=== PATIENT | female | born 1990 | race African-American/Black ===

== ENCOUNTER 2019-03-22 09:13 | Emergency (ER) | payer OTHER ==
[2019-03-22 09:50] LABS: BILIRUBIN,URINE NEGATIVE (NEGATIVE); CLARITY,URINE CLEAR (CLEAR); GLUCOSE, URINE (UA) 100 mg/dL (NEGATIVE); KETONES,URINE (UA) NEGATIVE (NEGATIVE); LEUKOCYTE ESTERASE, URINE TRACE (NEGATIVE); NITRITE,URINE NEGATIVE (NEGATIVE); OCCULT BLOOD,URINE NEGATIVE (NEGATIVE); PROTEIN,URINE NEGATIVE (NEGATIVE); UROBILINOGEN,URINE 0.2 (NORMAL) E.U./dL (NORMAL)
[2019-03-22 09:54] LABS: BACTERIA,URINE None Seen /HPF (None Seen); RBC,URINE None Seen /HPF (0-5); SQUAMOUS EPITHELIAL CELL,UR NONE SEEN (<= Few)
--- NOTE | 2019-03-22 10:31 | ED Physician Documentation ---
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 She has come to the emergency department concerned about taking medication for yeast infection as she is uncertain if there is something else going on as well. Review of Systems Constitutional: denies: Fever Eyes: denies: Decreased vision Ears: denies: Ear pain Nose: denies: Rhinorrhea / runny nose, Congestion Throat: denies: Sore throat Cardiac: denies: Chest pain / pressure, Palpitations Respiratory: denies: Dyspnea, Cough GI: reports: Nausea. denies: Abdominal Pain : reports: Discharge, Now EGA (16wk). denies: Dysuria, Frequency Skin: denies: Rash Musculoskeletal: denies: Neck pain, Back pain, Extremity pain PD PAST MEDICAL HISTORY - Past Medical History GI: GERD - Past Surgical History Past Surgical History: No - Present Medications Home Medications: Ambulatory Orders Medication Instructions Recorded Confirmed No Known Home Medications 07/20/15 07/20/15 - Allergies Allergies/Adverse Reactions: Allergies Allergy/AdvReac Type Severity Reaction Status Date / Time No Known Drug Allergies Allergy Verified 03/22/19 09:22 - Social History Does the pt smoke?: No Smoking Status: Never smoker Does the pt drink ETOH?: No Does the pt have substance abuse?: No - Immunizations Immunizations are current?: Yes Immunizations: TDAP >10years/unknown - POLST Patient has POLST: No PD ED PE NORMAL - Vitals Vital signs reviewed: Yes (tachy ) - General General: Alert and oriented X 3, No acute distress, Well developed/nourished - HEENT HEENT: Atraumatic, PERRL, EOMI - Neck Neck: Supple, no meningeal sign, No bony TTP - Cardiac Cardiac: RRR, No murmur - Respiratory Respiratory: No respiratory distress, Clear bilaterally - Abdomen Abdomen: Soft, Non tender - Female Female : Ticket Marker present (marshallese), Other (thick white discharge is scant and there is mucopurlence. ) - Back Back: No CVA TTP, No spinal TTP - Derm Derm: Normal color, Warm and dry, No rash - Extremities Extremities: No deformity, No edema - Neuro Neuro: Alert and oriented X 3, paper cone maker 2-12 intact, No motor deficit, No sensory deficit, Normal speech Eye Opening: Spontaneous Motor: Obeys Commands Verbal: Oriented GCS Score: 15 - Psych Psych: Other (mood is withdrawn and the affect is flat ) Results - Vitals Vitals: Vital Signs - 24 hr 03/22/19 03/22/19 03/22/19 09:19 09:40 12:34 Temperature 36.5 C Heart Rate 101 H 85 Respiratory 14 17 19 Rate Blood Pressure 120/57 L 122/68 O2 Saturation 99 100 Oxygen O2 Source Room air - Labs Labs: Microbiology 03/22/19 11:30 Wet Prep - Final Cervix 03/22/19 11:30 KHURRAM Preparation - Final Fluid - Cervix Laboratory Tests 03/22/19 03/22/19 09:37 09:37 Urine Color Cancelled YELLOW Urine Clarity Cancelled CLEAR Urine pH Cancelled 6.0 Ur Specific [place] Cancelled <=1.005 Urine Protein Cancelled NEGATIVE Urine Glucose (UA) Cancelled 100 H Urine Ketones Cancelled NEGATIVE Urine Occult Blood Cancelled NEGATIVE Urine Nitrite Cancelled NEGATIVE Urine Bilirubin Cancelled NEGATIVE Urine Urobilinogen Cancelled 0.2 (NORMAL) Ur Leukocyte Esterase Cancelled TRACE H Urine RBC Cancelled None Seen Urine WBC Cancelled 4-5 Urine WBC [place]umps Cancelled Ur Epithelial Cells Cancelled Ur Squamous Epith Cells Cancelled NONE SEEN Urine Crystals Cancelled Amorphous Sediment Cancelled Urine Bacteria Cancelled None Seen Urine Casts Cancelled Urine Starch Cancelled Urine Mucus Cancelled Urine Trichomonas Cancelled Urine Yeast Cancelled Urine Sperm Cancelled Ur Oval Fat Bodies Cancelled Ur Microscopic Review INDICATED Urine Culture Comments Cancelled INDICATED Procedures - Bedside sono Bedside sono by EMP: This bedside ultrasound the fetus is imaged it images as a viable single 16-week 3-day old fetus by biparietal diameter. The heart rate is 144. PD MEDICAL DECISION MAKING - ED course Complexity details: reviewed results, re-evaluated patient, considered differential, d/w patient, d/w family ED course: 28-year-old female with a chief complaint of vaginal itching is concerned that she may not be using the right medication for this and before she started using that she wanted to make certain that this was appropriate. Her chief complaint is itching with a slight discharge. She does not have pelvic pain. She indicates that she has not had sex with her since she has become . She has been checked for chlamydia and her routine visit. On examination I did find some muco-purulence and I did not obtain culture for GC and chlamydia. After repeating history from the patient and her chief complaint of vaginal itching I asked the patient to follow-up with her HELP DESK COORDINATOR if she has persistence of symptoms or symptoms not responding to treatment. I do not feel a second pelvic exam would be helpful and empiric treatment is not indicated for STD. I do feel that even with the negative swab for KHURRAM that her symptoms warrant empiric treatment for yeast and I have recommended monistat for her. Departure - Departure Disposition: 01 Home, Self Care Clinical Impression: Yeast vaginitis Condition: Stable Instructions: ED Vaginal Infec Fungal [place] Follow-Up: ROBY FREEMAN MD [Primary Care Provider] - Comments: Obtain the medication "Monistat" which is a vaginal yeast medication and use it for one week. Expect to have improvement in your itching in the next 2-3 days. Discharge Date/Time: 03/22/19 12:35
[2019-03-22 12:35] VITALS: BP 122/68
== END 2019-03-22 12:35 | disposition home or self-care (01) ==
LOC: ED 09:13
DX: O23.592 Infection of other part of genital tract in pregnancy, second trimester (principal); B37.3 Candidiasis of vulva and vagina; Z3A.16 16 weeks gestation of pregnancy
CPT/HCPCS: 81001; 81003; 87086; 87210; 87220; 99283

== ENCOUNTER 2022-06-26 04:14 | Emergency (ER) | payer OTHER ==
--- NOTE | 2022-06-26 05:29 | ED Physician Documentation ---
PD HPI Fall - Stated complaint Stated Complaint: LLQ ABD PX - Chief complaint Chief Complaint: Abd Pain PD PAST MEDICAL HISTORY - Past Medical History Cardiovascular: None Respiratory: None Endocrine/Autoimmune: None GI: GERD - Past Surgical History Past Surgical History: No - Present Medications Home Medications: Ambulatory Orders Medication Instructions Recorded Confirmed Acetaminophen [Acetaminophen Extra 500 mg PO QID PRN #50 tablet 06/06/22 Strength] Lidocaine Viscous 2% [Xylocaine 5 ml PO Q4H PRN #100 ml 06/06/22 Viscous 2%] Pantoprazole [Protonix] 40 mg PO DAILY 30 Days #30 tablet 06/06/22 Sucralfate [Carafate] 1 gm PO BID #30 tablet 06/06/22 - Allergies Allergies/Adverse Reactions: Allergies Allergy/AdvReac Type Severity Reaction Status Date / Time No Known Drug Allergies Allergy Verified 06/26/22 04:17 - Social History Does the pt smoke?: No Smoking Status: Never smoker Does the pt drink ETOH?: No Does the pt have substance abuse?: No - Immunizations Immunizations are current?: Yes Immunizations: TDAP >10years/unknown - POLST Patient has POLST: No Results - Vitals Vitals: Vital Signs - 24 hr 06/26/22 04:17 Temperature 36.5 C Heart Rate 90 Respiratory 16 Rate Blood Pressure 134/85 H O2 Saturation 100 Oxygen O2 Source Room air
--- NOTE | 2022-06-26 05:36 | ED Physician Documentation ---
PD HPI ABD PAIN - Stated complaint Stated Complaint: RLQ PX - Chief complaint Chief Complaint: Abd Pain - History obtained from History obtained from: Patient - History of Present Illness Timing - onset: How many days ago (1-2) Timing - details: Gradual onset, Waxing and waning Quality: Pain Location: All over / everywhere (predominantly RLQ) Radiation: Other (no radiation) Improved by: Other (no ameliorating factors) Worsened by: Palpation Associated symptoms: No: Fever, Nausea, Vomiting, Diarrhea, Constipation Recently seen: Emergency Dept (T+R from this ED 2 weeks ago for abdominal pain) Review of Systems Constitutional: reports: Reviewed and negative GI: reports: Abdominal Pain. denies: Abdominal Swelling, Nausea, Vomiting, Constipation, Diarrhea PD PAST MEDICAL HISTORY - Past Medical History Past Medical History: Yes Cardiovascular: None Respiratory: None Endocrine/Autoimmune: None GI: GERD - Past Surgical History Past Surgical History: No - Present Medications Home Medications: Ambulatory Orders Medication Instructions Recorded Confirmed Acetaminophen [Acetaminophen Extra 500 mg PO QID PRN #50 tablet 06/06/22 Strength] Lidocaine Viscous 2% [Xylocaine 5 ml PO Q4H PRN #100 ml 06/06/22 Viscous 2%] Pantoprazole [Protonix] 40 mg PO DAILY 30 Days #30 tablet 06/06/22 Sucralfate [Carafate] 1 gm PO BID #30 tablet 06/06/22 - Allergies Allergies/Adverse Reactions: Allergies Allergy/AdvReac Type Severity Reaction Status Date / Time No Known Drug Allergies Allergy Verified 06/26/22 04:17 - Social History Does the pt smoke?: No Smoking Status: Never smoker Does the pt drink ETOH?: No Does the pt have substance abuse?: No - Immunizations Immunizations are current?: Yes Immunizations: TDAP >10years/unknown - POLST Patient has POLST: No PD ED PE NORMAL - Vitals Vital signs reviewed: Yes - General General: Alert and oriented X 3, No acute distress, Well developed/nourished - Cardiac Cardiac: RRR, No murmur - Respiratory Respiratory: No respiratory distress, Clear bilaterally - Abdomen Abdomen: Soft, Non distended, Other (mild, point tenderness RLQ without rebound or guarding ) - Back Back: No CVA TTP - Derm Derm: Normal color, Warm and dry, No rash Results - Vitals Vitals: Oxygen O2 Source Room air - Labs Labs: Laboratory Tests 06/26/22 06/26/22 06/26/22 05:26 05:26 07:11 WBC 4.2 L RBC 4.35 Hgb 12.6 Hct 38.0 MCV 87.4 MCH 29.0 MCHC 33.2 RDW 12.4 Plt Count 275 MPV 8.7 Neut # (Auto) 1.9 Lymph # (Auto) 1.7 [place] # (Auto) 0.4 Eos # (Auto) 0.1 Baso # (Auto) 0.0 Absolute Nucleated RBC 0.00 Nucleated RBC % 0.0 Sodium 138 Potassium 3.6 Chloride 104 Carbon Dioxide 28 Anion Gap 6.0 BUN 13 Creatinine 0.6 Estimated GFR (MDRD) 143 Glucose 91 Calcium 9.4 Total Bilirubin 0.5 AST 19 ALT 18 Alkaline Phosphatase 69 Total Protein 7.3 Albumin 4.4 Globulin 2.9 Albumin/Globulin Ratio 1.5 Lipase 33 Urine Color LIGHT YELLOW Urine Clarity CLEAR Urine pH 6.0 Ur Specific [place] 1.010 Urine Protein NEGATIVE Urine Glucose (UA) NEGATIVE Urine Ketones NEGATIVE Urine Occult Blood LARGE H Urine Nitrite NEGATIVE Urine Bilirubin NEGATIVE Urine Urobilinogen 0.2 (NORMAL) Ur Leukocyte Esterase NEGATIVE Urine RBC 0-5 Urine WBC 0-3 Ur Squamous Epith Cells FEW Squamous Urine Bacteria Few Ur Microscopic Review INDICATED Urine Culture Comments NOT INDICATED Urine HCG, Qual 06/26/22 07:11 WBC RBC Hgb Hct MCV MCH MCHC RDW Plt Count MPV Neut # (Auto) Lymph # (Auto) [place] # (Auto) Eos # (Auto) Baso # (Auto) Absolute Nucleated RBC Nucleated RBC % Sodium Potassium Chloride Carbon Dioxide Anion Gap BUN Creatinine Estimated GFR (MDRD) Glucose Calcium Total Bilirubin AST ALT Alkaline Phosphatase Total Protein Albumin Globulin Albumin/Globulin Ratio Lipase Urine Color Urine Clarity Urine pH Ur Specific [place] Urine Protein Urine Glucose (UA) Urine Ketones Urine Occult Blood Urine Nitrite Urine Bilirubin Urine Urobilinogen Ur Leukocyte Esterase Urine RBC Urine WBC Ur Squamous Epith Cells Urine Bacteria Ur Microscopic Review Urine Culture Comments Urine HCG, Qual NEGATIVE - Rads (name of study) CT A/P Radiology: Prelim report reviewed, See rad report PD MEDICAL DECISION MAKING - ED course Complexity details: reviewed old records, reviewed results, re-evaluated patient, considered differential, d/w patient Departure - Departure Disposition: 01 Home, Self Care Clinical Impression: Abdominal pain Condition: Good Instructions: ED Abdominal Pain Female Non-Specific Abdominal Pain Comments: The results of tonight's tests are unremarkable; the cause of your abdominal discomfort is not apparent at this time. Follow up with your primary care provider for reevaluation. Incidentally noted on the CT of your abdomen/pelvis is a very small periumbilcal hernia ("belly button" hernia). There are no findings to suggest this is causing your pain. There is also a small, focal thickening of your uterus; this also would not explain your pain and it is a nonspecific finding (unclear what is causing this appearance), but your doctor can reevaluate this and might order further tests such as an ultrasound to evaluate this Discharge Date/Time: 06/26/22 08:36
[2022-06-26 05:37] LABS: BASOPHILS % (AUTO) 0.7 %; EOSINOPHILS # (AUTO) 0.1 10^3/uL (0.0-0.7); EOSINOPHILS % (AUTO) 2.4 %; HGB - HEMOGLOBIN 12.6 g/dL (12.0-16.0); LYMPHOCYTES # (AUTO) 1.7 10^3/uL (1.5-3.5); LYMPHOCYTES % (AUTO) 41.5 %; MEAN CORPUSCULAR HGB CONC 33.2 g/dL (32.0-36.0); MEAN CORPUSCULAR VOLUME 87.4 fL (81.0-99.0); MEAN PLATELET VOLUME 8.7 fL (7.9-10.8); MONOCYTES # (AUTO) 0.4 10^3/uL (0.0-1.0); MONOCYTES % (AUTO) 8.4 %; NEUTROPHILS # (AUTO) 1.9 10^3/uL (1.5-6.6); NEUTROPHILS % (AUTO) 46.5 %; PLT - PLATELET COUNT 275 10^3/uL (130-450); RED BLOOD COUNT 4.35 10^6/uL (4.20-5.40); RED CELL DISTRIBUTION WIDTH 12.4 % (12.0-15.0); WHITE BLOOD COUNT 4.2 x10^3/uL (4.8-10.8)
[2022-06-26 05:55] LABS: ALBUMIN 4.4 g/dL (3.2-5.5); ALBUMIN/GLOBULIN RATIO 1.5 (1.0-2.2); BILIRUBIN,TOTAL 0.5 mg/dL (0.2-1.0); CALCIUM 9.4 mg/dL (8.5-10.3); CREATININE 0.6 mg/dL (0.4-1.0); POTASSIUM 3.6 mmol/L (3.5-5.0); TOTAL PROTEIN 7.3 g/dL (6.7-8.2)
[2022-06-26 07:07] VITALS: BP 115/85
[2022-06-26 07:28] LABS: BILIRUBIN,URINE NEGATIVE (NEGATIVE); GLUCOSE, URINE (UA) NEGATIVE (NEGATIVE); KETONES,URINE (UA) NEGATIVE (NEGATIVE); LEUKOCYTE ESTERASE, URINE NEGATIVE (NEGATIVE); NITRITE,URINE NEGATIVE (NEGATIVE); OCCULT BLOOD,URINE LARGE (NEGATIVE); PROTEIN,URINE NEGATIVE (NEGATIVE); UROBILINOGEN,URINE 0.2 (NORMAL) E.U./dL (NORMAL)
[2022-06-26 07:31] LABS: HCG UR QUAL NEGATIVE
[2022-06-26 07:32] LABS: CLARITY,URINE CLEAR (CLEAR)
[2022-06-26 07:39] LABS: BACTERIA,URINE Few /HPF (None Seen); RBC,URINE 0-5 /HPF (0-5); SQUAMOUS EPITHELIAL CELL,UR FEW Squamous (<= Few); WBC,URINE 0-3 /HPF (0-5)
--- NOTE | 2022-06-26 08:22 | CT Report ---
PROCEDURE: Abdomen/Pelvis W INDICATIONS: RLQ pain CONTRAST: IV CONTRAST: Optiray 320 ml: 100 PO CONTRAST: *NO PO CONTRAST TECHNIQUE: After the administration of IV contrast, 5 mm thick sections acquired from the diaphragms to the symp hysis. 5 mm thick coronal and sagittal reformats were acquired. For radiation dose reduction, the f ollowing was used: automated exposure control, adjustment of mA and/or kV according to patient size. COMPARISON: Ultrasound of abdomen dated 06/06/2022. FINDINGS: Image quality: Excellent. ABDOMEN: Lung bases: Lung bases are clear. Heart size is normal. Solid organs: Liver and spleen are normal in size and enhancement. Gallbladder is within normal carreon its. Biliary system is non dilated. Pancreas enhances normally. No adrenal nodules. Kidneys demon strate normal size and enhancement, without hydronephrosis. Peritoneum and bowel: There is fecal stasis throughout the colon. No gross abnormal bowel wall thicke mello or mesenteric fat stranding. Appendix is visualized in right lower quadrant and is normal in siz e and appearance. No abscess collection. No free fluid of free air. Nodes and vessels: No retroperitoneal or mesenteric adenopathy by size criteria. Aorta and inferior vena cava are normal in size. Miscellaneous: There is a umbilical hernia containing a short segment of bowel loop without signs of incarceration or spiculation. PELVIS: Genitourinary: Bladder wall thickness is normal. Miscellaneous: No inguinal hernias or adenopathy. Bones: No suspicious bony lesions. No vertebral body compression fractures. IMPRESSION: 1. Mild constipation. Normal appendix. No bowel obstruction. No free fluid of free air. No abscess co llection. 2. Small umbilical hernia containing a short segment of bowel loops without evidence of incarceration or strangulation. Reviewed by: Rafita Stuart MD on 06/26/2022 8:21 AM PDT Approved by: Rafita Stuart MD on 06/26/2022 8:21 AM PDT Station ID: [id number]
== END 2022-06-26 08:36 | disposition home or self-care (01) ==
LOC: ED 04:14
DX: R10.31 Right lower quadrant pain (principal)
CPT/HCPCS: 36415; 74177; 80053; 81001; 81025; 83690; 85025; 99282; 99284; Q9967; 81003; 87086

== ENCOUNTER 2022-12-21 22:50 | Emergency (ER) | payer OTHER ==
[2022-12-21 23:57] LABS: BASOPHILS % (AUTO) 0.4 %; EOSINOPHILS # (AUTO) 0.1 10^3/uL (0.0-0.7); EOSINOPHILS % (AUTO) 1.9 %; HCT - HEMATOCRIT 39.2 % (37.0-47.0); HGB - HEMOGLOBIN 12.4 g/dL (12.0-16.0); LYMPHOCYTES # (AUTO) 2.4 10^3/uL (1.5-3.5); LYMPHOCYTES % (AUTO) 49.9 %; MEAN CORPUSCULAR HEMOGLOBIN 27.7 pg (27.0-31.0); MEAN CORPUSCULAR HGB CONC 31.6 g/dL (32.0-36.0); MEAN CORPUSCULAR VOLUME 87.5 fL (81.0-99.0); MEAN PLATELET VOLUME 9.6 fL (7.9-10.8); MONOCYTES # (AUTO) 0.4 10^3/uL (0.0-1.0); MONOCYTES % (AUTO) 8.9 %; NEUTROPHILS # (AUTO) 1.9 10^3/uL (1.5-6.6); NEUTROPHILS % (AUTO) 38.7 %; PLT - PLATELET COUNT 327 10^3/uL (130-450); RED BLOOD COUNT 4.48 10^6/uL (4.20-5.40); WHITE BLOOD COUNT 4.8 x10^3/uL (4.8-10.8)
[2022-12-22 00:05] LABS: BILIRUBIN,URINE NEGATIVE (NEGATIVE); GLUCOSE, URINE (UA) NEGATIVE (NEGATIVE); KETONES,URINE (UA) NEGATIVE (NEGATIVE); LEUKOCYTE ESTERASE, URINE NEGATIVE (NEGATIVE); NITRITE,URINE NEGATIVE (NEGATIVE); OCCULT BLOOD,URINE NEGATIVE (NEGATIVE); PROTEIN,URINE NEGATIVE (NEGATIVE); UROBILINOGEN,URINE 0.2 (NORMAL) E.U./dL (NORMAL)
[2022-12-22 00:08] LABS: CLARITY,URINE CLEAR (CLEAR)
[2022-12-22 00:09] LABS: HCG UR QUAL NEGATIVE
[2022-12-22 00:10] LABS: ALBUMIN 4.4 g/dL (3.2-5.5); ALBUMIN/GLOBULIN RATIO 1.1 (1.0-2.2); BILIRUBIN,TOTAL 0.4 mg/dL (0.2-1.0); CALCIUM 9.9 mg/dL (8.5-10.3); CREATININE 0.8 mg/dL (0.4-1.0); TOTAL PROTEIN 8.3 g/dL (6.7-8.2)
--- NOTE | 2022-12-22 00:51 | ED Physician Documentation ---
History of Present Illness - Stated complaint Stated Complaint: ABD PX - Chief complaint Chief Complaint: Abd Pain - History obtained from History obtained from: Patient - Additonal information Additional information: 32-year-old woman with history of chronic abdominal pain presents with midepigastric pain for the past 4 days with associated nausea. Patient has had full GI work-up including endoscopy and colonoscopy that were all negative.Denies vomiting, diarrhea, fever. Denies urinary symptoms. PD PAST MEDICAL HISTORY - Past Medical History Past Medical History: No Cardiovascular: None Respiratory: None Endocrine/Autoimmune: None GI: GERD - Past Surgical History Past Surgical History: Yes General: Colonoscopy, EGD - Present Medications Home Medications: Ambulatory Orders Medication Instructions Recorded Confirmed Multivitamin 1 tab PO DAILY 12/21/22 12/21/22 - Allergies Allergies/Adverse Reactions: Allergies Allergy/AdvReac Type Severity Reaction Status Date / Time No Known Drug Allergies Allergy Verified 12/21/22 23:37 - Social History Does the pt smoke?: No Smoking Status: Never smoker Does the pt drink ETOH?: No Does the pt have substance abuse?: No - Immunizations Immunizations are current?: Yes Immunizations: TDAP >10years/unknown - POLST Patient has POLST: No PD ED PE NORMAL - Vitals Vital signs reviewed: Yes - General General: Alert and oriented X 3, No acute distress, Well developed/nourished - HEENT HEENT: Atraumatic, PERRL, EOMI - Cardiac Cardiac: RRR - Respiratory Respiratory: No respiratory distress, Clear bilaterally - Abdomen Abdomen: Non tender, Non distended Results - Vitals Vitals: Vital Signs - 24 hr 12/21/22 12/22/22 23:32 00:55 Temperature 37.0 C 36.9 C Heart Rate 88 75 Respiratory 18 16 Rate Blood Pressure 123/69 114/79 O2 Saturation 100 100 Oxygen O2 Source Room air - Labs Labs: Laboratory Tests 12/21/22 12/21/22 12/21/22 23:24 23:24 23:48 WBC 4.8 RBC 4.48 Hgb 12.4 Hct 39.2 MCV 87.5 MCH 27.7 MCHC 31.6 L RDW 13.0 Plt Count 327 MPV 9.6 Neut # (Auto) 1.9 Lymph # (Auto) 2.4 [place] # (Auto) 0.4 Eos # (Auto) 0.1 Baso # (Auto) 0.0 Absolute Nucleated RBC 0.00 Nucleated RBC % 0.0 Sodium 138 Potassium 4.0 Chloride 101 Carbon Dioxide 29 Anion Gap 8.0 BUN 21 H Creatinine 0.8 Estimated GFR (MDRD) 102 Glucose 108 H Calcium 9.9 Total Bilirubin 0.4 AST 29 ALT 18 Alkaline Phosphatase 92 Total Protein 8.3 H Albumin 4.4 Globulin 3.9 Albumin/Globulin Ratio 1.1 Lipase 48 Urine Color YELLOW Urine Clarity CLEAR Urine pH 7.0 Ur Specific [place] <=1.005 Urine Protein NEGATIVE Urine Glucose (UA) NEGATIVE Urine Ketones NEGATIVE Urine Occult Blood NEGATIVE Urine Nitrite NEGATIVE Urine Bilirubin NEGATIVE Urine Urobilinogen 0.2 (NORMAL) Ur Leukocyte Esterase NEGATIVE Ur Microscopic Review NOT INDICATED Urine Culture Comments NOT INDICATED Urine HCG, Qual 12/21/22 23:48 WBC RBC Hgb Hct MCV MCH MCHC RDW Plt Count MPV Neut # (Auto) Lymph # (Auto) [place] # (Auto) Eos # (Auto) Baso # (Auto) Absolute Nucleated RBC Nucleated RBC % Sodium Potassium Chloride Carbon Dioxide Anion Gap BUN Creatinine Estimated GFR (MDRD) Glucose Calcium Total Bilirubin AST ALT Alkaline Phosphatase Total Protein Albumin Globulin Albumin/Globulin Ratio Lipase Urine Color Urine Clarity Urine pH Ur Specific [place] Urine Protein Urine Glucose (UA) Urine Ketones Urine Occult Blood Urine Nitrite Urine Bilirubin Urine Urobilinogen Ur Leukocyte Esterase Ur Microscopic Review Urine Culture Comments Urine HCG, Qual NEGATIVE PD Medical Decision Making - ED course ED course: 32-year-old woman presents with chronic abdominal pain. CBC and abdominal panel ordered with unremarkable lab work. Offered symptomatic care but patient declined. Return precautions given. Plan to follow-up with primary care provider and GI. Departure - Departure Disposition: 01 Home, Self Care Clinical Impression: Abdominal pain Condition: Good Instructions: Abdominal Pain Comments: You were seen in the emergency department for abdominal pain. Please follow-up with your primary care provider. Your lab work and exam are normal. Return to the emergency department for any new or worsening symptoms. Discharge Date/Time: 12/22/22 00:55
[2022-12-22 01:01] VITALS: BP 114/79
== END 2022-12-22 00:55 | disposition home or self-care (01) ==
LOC: ED 22:50
DX: R10.13 Epigastric pain (principal)
CPT/HCPCS: 36415; 80053; 81001; 81003; 81025; 83690; 85025; 87086; 99283

== ENCOUNTER 2023-09-24 09:04 | Emergency (ER) | payer OTHER ==
[2023-09-24] MEDS ORDERED: SODIUM CHLORIDE 0.9% 1,000 ML IV STA (09:07)
[2023-09-24] MEDS ORDERED: ONDANSETRON 4 MG/2 ML VIAL IVP STA (09:08)
[2023-09-24 09:24] LABS: BASOPHILS # (AUTO) 0.1 10^3/uL (0.0-0.1); BASOPHILS % (AUTO) 1.2 %; EOSINOPHILS % (AUTO) 0.9 %; HCT - HEMATOCRIT 33.3 % (37.0-47.0); HGB - HEMOGLOBIN 10.6 g/dL (12.0-16.0); LYMPHOCYTES # (AUTO) 1.7 10^3/uL (1.5-3.5); LYMPHOCYTES % (AUTO) 40.5 %; MEAN CORPUSCULAR HGB CONC 31.8 g/dL (32.0-36.0); MEAN CORPUSCULAR VOLUME 84.9 fL (81.0-99.0); MEAN PLATELET VOLUME 8.6 fL (7.9-10.8); MONOCYTES # (AUTO) 0.4 10^3/uL (0.0-1.0); MONOCYTES % (AUTO) 9.5 %; NEUTROPHILS # (AUTO) 2.1 10^3/uL (1.5-6.6); NEUTROPHILS % (AUTO) 47.7 %; PLT - PLATELET COUNT 311 10^3/uL (130-450); RED BLOOD COUNT 3.92 10^6/uL (4.20-5.40); RED CELL DISTRIBUTION WIDTH 14.5 % (12.0-15.0); WHITE BLOOD COUNT 4.3 x10^3/uL (4.8-10.8)
[2023-09-24 09:38] LABS: ALBUMIN 4.5 g/dL (3.2-5.5); ALBUMIN/GLOBULIN RATIO 1.7 (1.0-2.2); BILIRUBIN,TOTAL 0.4 mg/dL (0.2-1.0); CALCIUM 9.4 mg/dL (8.5-10.3); CREATININE 0.6 mg/dL (0.6-1.3); POTASSIUM 3.8 mmol/L (3.5-4.5); TOTAL PROTEIN 7.2 g/dL (6.4-8.9)
[2023-09-24] MEDS ORDERED: HYDROmorphone 1 MG/ML CARPUJECT IVP STA (09:58)
[2023-09-24 10:21] LABS: HCG,QUALITATIVE BLOOD NEGATIVE
[2023-09-24] MEDS ORDERED: iohexoL-300 100 ML VIAL IVP ONE (10:45)
--- NOTE | 2023-09-24 11:24 | CT Report ---
PROCEDURE: ABDOMEN/PELVIS W INDICATIONS: R abd pain CONTRAST: 100ml omni 300 TECHNIQUE: After the administration of intravenous contrast, 5 mm thick sections acquired from the diaphragms to the symphysis. 5 mm thick coronal and sagittal reformats were acquired. For radiation dose reducti on, the following was used: automated exposure control, adjustment of mA and/or kV according to desiree ent size. COMPARISON: CT 06/26/2022 FINDINGS: Image quality: Excellent. Lung bases and heart: Unremarkable. Liver: No solid mass. Gallbladder and biliary tree: No radiopaque stones or wall thickening. No biliary dilation. Spleen: No splenomegaly. Pancreas: No pancreatic ductal dilation. Adrenals: No adrenal nodule. Kidneys and ureters: No hydronephrosis. No renal cystic lesion which requires follow up. No solid mas s. Bowel and peritoneum: No bowel distension. No pathologic free fluid. Normal appendix. Moderate coloni c stool load. Lymph nodes: No central or retroperitoneal adenopathy. Vessels: No infrarenal aortic aneurysm. PELVIS Reproductive organs: Unremarkable. Bladder: No abnormal wall thickening, accounting for underdistension. Pelvic lymph nodes: No pelvic adenopathy by size criteria. Bones: No aggressive osseous abnormality. Other: No significant ventral or inguinal hernia. Diastases rectae. IMPRESSION: Moderate colonic stool load. No inflammatory process identified. Normal appendix, gallbladder and no nephrolithiasis. Reviewed by: Charles Vicente on 09/24/2023 11:23 AM [facility] Approved by: Charles Vicente on 09/24/2023 11:23 AM PST Station ID: [id number]
--- NOTE | 2023-09-24 11:39 | ED Physician Documentation ---
PD HPI ABD PAIN - Stated complaint Stated Complaint: ABD PX/NAUSEA - Chief complaint Chief Complaint: Abd Pain - History obtained from History obtained from: Patient - Additional information Additional information: The pt comes to the ED with CC of upper abd pain, worse with eating and worse at night, since her 6-year-old child was born. She states it's worse over the past several weeks. Since sx first started, the pt has had extensive evaluation, including with GI and including US, CT, and scopes, with no identified etiology as yet for the pt's pain. The pt states it's keeping her up at night, and she has been miserable. No new features. No fevers or dysuria. Nausea without vomiting. PD PAST MEDICAL HISTORY - Past Medical History Past Medical History: Yes Cardiovascular: None Respiratory: None Endocrine/Autoimmune: None GI: GERD - Past Surgical History Past Surgical History: Yes General: Colonoscopy, EGD - Present Medications Home Medications: Ambulatory Orders Medication Instructions Recorded Confirmed Gabapentin [Neurontin] 300 mg PO HS 09/24/23 09/24/23 HYDROcod/ACETAM 5/325 [[place] 5/325] 1 - 2 tablet PO Q6H PRN #14 tablet 09/24/23 Omeprazole 40 mg PO DAILY #30 cap 09/24/23 Vibegron [Gemtesa] 75 mg PO DAILY 09/24/23 09/24/23 - Allergies Allergies/Adverse Reactions: Allergies Allergy/AdvReac Type Severity Reaction Status Date / Time No Known Drug Allergies Allergy Verified 09/24/23 09:22 - Social History Does the pt smoke?: No Smoking Status: Never smoker Does the pt drink ETOH?: No Does the pt have substance abuse?: No - Immunizations Immunizations are current?: Yes Immunizations: TDAP >10years/unknown - POLST Patient has POLST: No PD ED PE NORMAL - Vitals Vital signs reviewed: Yes - General General: Alert and oriented X 3, No acute distress, Well developed/nourished, Other (anxious, tearful, no distress otherwise.) - HEENT HEENT: Atraumatic, PERRL, EOMI, Moist mucous membranes - Neck Neck: Supple, no meningeal sign - Cardiac Cardiac: RRR, No murmur - Respiratory Respiratory: No respiratory distress, Clear bilaterally - Abdomen Abdomen: Soft, Non distended, Other (diffuse upper abdominal tenderness, no rebound or guarding.) - Derm Derm: Normal color, Warm and dry, No rash - Extremities Extremities: No deformity - Neuro Neuro: Alert and oriented X 3 - Psych Psych: Normal mood, Normal affect Results - Vitals Vitals: Oxygen O2 Source Room air - Labs Labs: Laboratory Tests 09/24/23 09/24/23 09/24/23 09:15 09:15 09:15 WBC 4.3 L RBC 3.92 L Hgb 10.6 L Hct 33.3 L MCV 84.9 MCH 27.0 MCHC 31.8 L RDW 14.5 Plt Count 311 MPV 8.6 Neut # (Auto) 2.1 Lymph # (Auto) 1.7 [place] # (Auto) 0.4 Eos # (Auto) 0.0 Baso # (Auto) 0.1 Absolute Nucleated RBC 0.00 Nucleated RBC % 0.0 Sodium 136 Potassium 3.8 Chloride 104 Carbon Dioxide 26 Anion Gap 6.0 BUN 15 Creatinine 0.6 Estimated GFR (MDRD) 141 Glucose 98 Calcium 9.4 Total Bilirubin 0.4 AST 18 ALT 11 Alkaline Phosphatase 64 Total Protein 7.2 Albumin 4.5 Globulin 2.7 Albumin/Globulin Ratio 1.7 Lipase 25 Serum HCG, Qual NEGATIVE - Rads (name of study) CT abd/pelvis Relevant Findings:: Final report received, See rad report (neg) PD Medical Decision Making - ED course Complexity details: reviewed results, re-evaluated patient, considered differential, d/w patient ED course: The pt was treated symptomatically in the ED. She had had sx for years, with extensive work-up, though the last CT and US on record were a year ago. The pt had had a recent worsening of her pain, so I did repeat a work-up in the ED with the consideration that the pt may have developed a new condition since her previous work-up. She was treated symptomatically in the ED. CT and labs were negative. I d/w pt that she may need to get a second opinion from GI about her sx. No emergent condition has been identified today. We have discussed the usual indications for return. Departure - Departure Disposition: 01 Home, Self Care Clinical Impression: Abdominal pain Condition: Stable Instructions: ED Abdominal Pain Female Non-Specific Abdominal Pain Prescriptions: HYDROcod/ACETAM 5/325 [[place] 5/325] 1 - 2 tablet PO Q6H PRN #14 tablet PRN Reason: Pain Omeprazole 40 mg PO DAILY #30 cap Comments: Your labs and CT look good. There is no evidence of a problem with your pancreas. It is not clear exactly what is causing your chronic abdominal pain. We will put you on medication for your stomach and also, a medication for pain. You will need to keep following up with your primary doctor to see if getting a second opinion from another GI specialist would be a good idea. You should also talk to your doctor about seeing a chronic pain specialist to try to get better control of your symptoms. Your prescriptions have been electronically transmitted to the [facility] pharmacy in [place]. Please pick them up and make the next available appointment with your primary doctor. Forms: PCP List Discharge Date/Time: 09/24/23 12:05
[2023-09-24 12:10] VITALS: BP 128/84; O2SAT 100
== END 2023-09-24 12:05 | disposition home or self-care (01) ==
LOC: ED 09:04
DX: R10.10 Upper abdominal pain, unspecified (principal); Z79.899 Other long term (current) drug therapy
CPT/HCPCS: 36415; 74177; 80053; 83690; 84703; 85025; 96374; 99283; 99284; J1170; Q9967

== ENCOUNTER 2023-11-07 07:45 | Outpatient (CLI) | payer OTHER ==
--- NOTE | 2023-11-07 08:53 | MRI Report ---
PROCEDURE: LUMBAR SPINE WO INDICATIONS: LOW BACK PAIN TECHNIQUE: Noncontrast sagittal T1 spin echo and T2 fast echo, sagittal STIR, axial T1 and T2 fast spin echo thr ough the lumbar spine. In cases with scoliosis, additional coronal T2 fast spin echo may be performe d. COMPARISON: None. FINDINGS: Image quality: Excellent. Alignment and Curvature: There is normal bony alignment. Bone Marrow: Marrow is of normal overall signal. No acute vertebral body compression fractures. Spinal Cord: Conus medullaris terminates at the L1-L2 level. Visualized cord demonstrates normal si gnal and size. Paraspinous Soft Tissues: No paravertebral masses. T12-L1: Normal in appearance. L1-L2: Normal in appearance. L2-L3: Normal in appearance. L3-L4: Normal in appearance. L4-L5: Normal in appearance. L5-S1: Normal in appearance. IMPRESSION: 1.No evidence of traumatic injury within the lumbar spine. 2.No significant degenerative changes. Reviewed by: Bartolo Alston MD on 11/07/2023 8:52 AM PST Approved by: Bartolo Alston MD on 11/07/2023 8:52 AM PST Station ID: [id number]
== END 2023-11-07 07:46 | disposition home or self-care (01) ==
LOC: DI 07:45
PROVIDERS: ATTEND Family Medicine
DX: M54.50 Low back pain, unspecified (principal); G89.29 Other chronic pain

== ENCOUNTER 2024-02-03 09:01 | Emergency (ER) | payer OTHER ==
[2024-02-03 09:18] VITALS: BP 119/71; O2SAT 100
[2024-02-03 09:46] LABS: BILIRUBIN,URINE NEGATIVE (NEGATIVE); GLUCOSE, URINE (UA) NEGATIVE (NEGATIVE); KETONES,URINE (UA) NEGATIVE (NEGATIVE); LEUKOCYTE ESTERASE, URINE NEGATIVE (NEGATIVE); NITRITE,URINE NEGATIVE (NEGATIVE); OCCULT BLOOD,URINE LARGE (NEGATIVE); PH,URINE 7.5 PH (5.0-7.5); PROTEIN,URINE NEGATIVE (NEGATIVE); UROBILINOGEN,URINE 0.2 (NORMAL) E.U./dL (NORMAL)
[2024-02-03 09:47] LABS: BASOPHILS % (AUTO) 0.6 %; EOSINOPHILS # (AUTO) 0.1 10^3/uL (0.0-0.7); EOSINOPHILS % (AUTO) 1.5 %; HCT - HEMATOCRIT 33.6 % (37.0-47.0); HGB - HEMOGLOBIN 10.5 g/dL (12.0-16.0); LYMPHOCYTES # (AUTO) 1.6 10^3/uL (1.5-3.5); LYMPHOCYTES % (AUTO) 46.8 %; MEAN CORPUSCULAR HEMOGLOBIN 26.9 pg (27.0-31.0); MEAN CORPUSCULAR HGB CONC 31.3 g/dL (32.0-36.0); MEAN CORPUSCULAR VOLUME 86.2 fL (81.0-99.0); MONOCYTES # (AUTO) 0.4 10^3/uL (0.0-1.0); MONOCYTES % (AUTO) 11.7 %; NEUTROPHILS # (AUTO) 1.3 10^3/uL (1.5-6.6); NEUTROPHILS % (AUTO) 39.4 %; PLT - PLATELET COUNT 280 10^3/uL (130-450); RED CELL DISTRIBUTION WIDTH 14.5 % (12.0-15.0); WHITE BLOOD COUNT 3.3 x10^3/uL (4.8-10.8)
[2024-02-03 09:48] LABS: HCG UR QUAL NEGATIVE
[2024-02-03 09:54] LABS: CLARITY,URINE HAZY (CLEAR)
[2024-02-03 10:01] LABS: BACTERIA,URINE None Seen /HPF (None Seen); RBC,URINE 0-5 /HPF (0-5); SQUAMOUS EPITHELIAL CELL,UR NONE SEEN (<= Few); WBC,URINE 0-3 /HPF (0-5)
[2024-02-03 10:08] LABS: ALBUMIN 4.3 g/dL (3.2-5.5); ALBUMIN/GLOBULIN RATIO 1.3 (1.0-2.2); BILIRUBIN,TOTAL 0.3 mg/dL (0.2-1.0); CALCIUM 9.5 mg/dL (8.5-10.3); CREATININE 0.8 mg/dL (0.6-1.3); POTASSIUM 3.9 mmol/L (3.5-4.5); TOTAL PROTEIN 7.5 g/dL (6.4-8.9)
--- NOTE | 2024-02-03 10:41 | ED Physician Documentation ---
PD HPI ABD PAIN - Stated complaint Stated Complaint: LT SIDE PX - Chief complaint Chief Complaint: Abd Pain - History obtained from History obtained from: Patient - Additional information Additional information: Patient is a 33-year-old female with a history of chronic abdominal pain presenting for evaluation of left upper quadrant pain that has been worsening over the past 8 days. She reports being compliant with her omeprazole 40 mg daily but it does not seem to be helping. She has seen GI in the past and has had scopes without any clear etiology. Patient has had multiple prior ED visits with similar symptoms without identifiable causes found. Patient states it is worse after eating but does watch what she is eating. Denies alcohol use. No vomiting or diarrhea. Denies blood in stools or discolored stools. No fever, chest pain, shortness of air. Is not currently following with gastroenterology. Review of Systems Constitutional: denies: Fever Cardiac: denies: Chest pain / pressure Respiratory: denies: Dyspnea GI: reports: Abdominal Pain. denies: Vomiting, Diarrhea : denies: Dysuria PD PAST MEDICAL HISTORY - Past Medical History Cardiovascular: None Respiratory: None Endocrine/Autoimmune: None GI: GERD - Past Surgical History Past Surgical History: Yes General: Colonoscopy, EGD - Present Medications Home Medications: Ambulatory Orders Medication Instructions Recorded Confirmed Gabapentin [Neurontin] 300 mg PO HS 09/24/23 09/24/23 HYDROcod/ACETAM 5/325 [[place] 5/325] 1 - 2 tablet PO Q6H PRN #14 tablet 09/24/23 Omeprazole 40 mg PO DAILY #30 cap 09/24/23 Vibegron [Gemtesa] 75 mg PO DAILY 09/24/23 09/24/23 - Allergies Allergies/Adverse Reactions: Allergies Allergy/AdvReac Type Severity Reaction Status Date / Time No Known Drug Allergies Allergy Verified 02/03/24 09:12 - Social History Does the pt smoke?: No Smoking Status: Never smoker Does the pt drink ETOH?: No Does the pt have substance abuse?: No - Immunizations Immunizations are current?: Yes Immunizations: TDAP >10years/unknown - POLST Patient has POLST: No PD ED PE NORMAL - General General: Alert and oriented X 3, No acute distress, Well developed/nourished - HEENT HEENT: Atraumatic, Moist mucous membranes, Pharynx benign - Neck Neck: Supple, no meningeal sign - Cardiac Cardiac: RRR, Strong equal pulses - Respiratory Respiratory: No respiratory distress, Clear bilaterally - Abdomen Abdomen: Normal bowel sounds, Soft, Non distended, Other (LUQ ttp; no rebound/no guarding; no RUQ or lower abdominal tenderness) - Derm Derm: Warm and dry - Neuro Neuro: Normal speech Results - Vitals Vitals: Vital Signs - 24 hr 02/03/24 09:08 Temperature 36.9 C Heart Rate 77 Respiratory 16 Rate Blood Pressure 119/71 O2 Saturation 100 Oxygen O2 Source Room air - Labs Labs: Laboratory Tests 02/03/24 02/03/24 02/03/24 09:30 09:30 09:30 WBC 3.3 L RBC 3.90 L Hgb 10.5 L Hct 33.6 L MCV 86.2 MCH 26.9 L MCHC 31.3 L RDW 14.5 Plt Count 280 MPV 9.0 Neut # (Auto) 1.3 L Lymph # (Auto) 1.6 [place] # (Auto) 0.4 Eos # (Auto) 0.1 Baso # (Auto) 0.0 Absolute Nucleated RBC 0.00 Nucleated RBC % 0.0 Sodium 138 Potassium 3.9 Chloride 106 Carbon Dioxide 27 Anion Gap 5.0 L BUN 10 Creatinine 0.8 Estimated GFR (MDRD) 101 Glucose 90 Calcium 9.5 Total Bilirubin 0.3 AST 16 ALT 9 L Alkaline Phosphatase 68 Total Protein 7.5 Albumin 4.3 Globulin 3.2 Albumin/Globulin Ratio 1.3 Lipase 21 Urine Color Urine Clarity Urine pH Ur Specific [place] Urine Protein Urine Glucose (UA) Urine Ketones Urine Occult Blood Urine Nitrite Urine Bilirubin Urine Urobilinogen Ur Leukocyte Esterase Urine RBC Urine WBC Ur Squamous Epith Cells Urine Bacteria Ur Microscopic Review Urine Culture Comments Urine HCG, Qual NEGATIVE 02/03/24 09:30 WBC RBC Hgb Hct MCV MCH MCHC RDW Plt Count MPV Neut # (Auto) Lymph # (Auto) [place] # (Auto) Eos # (Auto) Baso # (Auto) Absolute Nucleated RBC Nucleated RBC % Sodium Potassium Chloride Carbon Dioxide Anion Gap BUN Creatinine Estimated GFR (MDRD) Glucose Calcium Total Bilirubin AST ALT Alkaline Phosphatase Total Protein Albumin Globulin Albumin/Globulin Ratio Lipase Urine Color LT. YELLOW Urine Clarity HAZY Urine pH 7.5 Ur Specific [place] 1.010 Urine Protein NEGATIVE Urine Glucose (UA) NEGATIVE Urine Ketones NEGATIVE Urine Occult Blood LARGE H Urine Nitrite NEGATIVE Urine Bilirubin NEGATIVE Urine Urobilinogen 0.2 (NORMAL) Ur Leukocyte Esterase NEGATIVE Urine RBC 0-5 Urine WBC 0-3 Ur Squamous Epith Cells NONE SEEN Urine Bacteria None Seen Ur Microscopic Review INDICATED Urine Culture Comments NOT INDICATED Urine HCG, Qual PD Medical Decision Making - ED course Complexity details: reviewed results, d/w patient ED course: Patient is a 33-year-old female presenting for evaluation of left upper quadrant pain Which she has had for a long time. She has been using her omeprazole without improvement here recently. Mild tenderness noted on exam. CBC and chemistries reviewed. Mild leukopenia and anemia which are unchanged from prior labs in August.No symptoms to suggest GI bleeding.Chemistries unremarkable. No right upper quadrant or lower abdominal tenderness. Patient declined any medications here. Doubt imaging would be particularly helpful as this seems to be more of a chronic condition and would recommend close follow-up with gastroenterology. Patient may need repeat upper endoscopy. If she is agreeable to trialing increase of her omeprazole dosing. Understands importance of close follow-up with primary care provider regarding her anemia as well as her symptoms. Departure - Departure Disposition: , Self Care Clinical Impression: Epigastric abdominal pain, Anemia Condition: Stable Instructions: ED Epigastric Pain [facility] Follow-Up: VERN KIDD, DO [Primary Care Provider] - Comments: Your labs today show that your white blood cell count and hemoglobin are both slightly low. This is similar to levels we saw back in August when you were here. I would recommend close follow-up with your primary care doctor to investigate further why you are anemic. I would also recommend reestablishing care with a social work therapist regarding your abdominal pain as you may need another scope to see what is causing your symptoms. In the meanwhile I would have you continue with the omeprazole. Currently you are taking omeprazole 40 mg once a day. I would recommend increasing this to taking it twice a day once in the morning and once in the evening. Return to the ER with any new or worsening symptoms. Forms: PCP List Discharge Date/Time: 02/03/24 11:02
== END 2024-02-03 11:02 | disposition home or self-care (01) ==
LOC: ED 09:01
DX: D64.9 Anemia, unspecified (principal); R10.13 Epigastric pain; Z79.899 Other long term (current) drug therapy; D72.819 Decreased white blood cell count, unspecified
CPT/HCPCS: 36415; 80053; 81001; 81003; 81025; 83690; 85025; 87086; 99283